=== PATIENT | male | born 1970 | race Caucasian/White ===

== ENCOUNTER 2017-11-11 14:44 | Emergency (ER) | payer SELFPAY ==
[2017-11-11] MEDS: NAPROXEN 500 MG TAB PO (15:41)
== END 2017-11-11 16:53 | disposition home or self-care (01) ==
LOC: FTE 14:44
DX: M25.561 Pain in right knee (principal)
CPT/HCPCS: 29505; 73562; 93971; 99283-25

== ENCOUNTER 2018-02-25 07:22 | Emergency (ER) | payer MEDICAID ==
[2018-02-25 08:17] LABS: URINE BLOOD (Dip) POC Negative (NEGATIVE); URINE GLUCOSE (Dip) POC Negative (NEGATIVE); URINE KETONES (Dip) POC Negative (NEGATIVE); URINE LEUKOCYTE EST (Dip) POC Negative (NEGATIVE); URINE NITRITE (Dip) POC Negative (NEGATIVE); URINE TOTAL PROTEIN POC Negative (NEGATIVE)
== END 2018-02-25 09:00 | disposition home or self-care (01) ==
LOC: FTE 09:00
DX: M54.9 Dorsalgia, unspecified (principal)
CPT/HCPCS: 81003; 99283

== ENCOUNTER 2018-02-26 10:52 | Emergency (ER) | payer MEDICAID ==
[2018-02-26] MEDS: KETOROLAC 30 MG INJ IM (11:25)
[2018-02-26] MEDS: DEXAMETHASONE 10 MG/ML 1 ML INJ IM (11:26)
[2018-02-26] MEDS: METHOCARBAMOL 750 MG TAB PO (11:28)
== END 2018-02-26 12:59 | disposition home or self-care (01) ==
LOC: FTE 10:52
DX: M54.6 Pain in thoracic spine (principal); G89.29 Other chronic pain
CPT/HCPCS: 96372; 99284-25